=== PATIENT | female | born 1960 | race African-American/Black ===

== ENCOUNTER 2017-07-19 08:29 | Inpatient (IN) | payer OTHER ==
[2017-07-19 08:38] VITALS: BMI 27.1
--- NOTE | 2017-07-19 12:44 | HP ---
CIWA Score - CIWA Score Nausea/Vomitin Muscle Tremors: 3 Anxiety: 3 Agitation: 3 Paroxysmal Sweats: 1-Minimal Palms Moist Orientation: 0-Oriented Tacttile Disturbances: 2-Mild Itch/Numbness/Burn Auditory Disturbances: 2-Mild Harshness/Frighten Visual Disturbances: 1-Very Mild Sensitivity Headache: 2-Mild CIWA-Ar Total Score: 20 Admission ROS BHS - HPI Chief Complaint: i need help to stop drinking alcohol and marijuana Allergies/Adverse Reactions: Allergies Allergy/AdvReac Type Severity Reaction Status Date / Time No Known Allergies Allergy Verified 07/19/17 10:32 History of Present Illness: this 57 years old female with alcohol and marijuana dependence,seeking detox, withdrawal symptom,last detox [facility] 10 years ago sle since 2004 nicotine dependence longest period of sobriety 5 years Exam Limitations: No Limitations - Ebola screening Have you traveled outside of the country in the last 21 days: No (N) Have you had contact with anyone from an Ebola affected area: No Have you been sick,other than usual withdrawal symptoms: No Do you have a fever: No - Review of Systems Constitutional: Loss of Appetite, Night Sweats, Changes in sleep, Weakness EENT: reports: Tearing, Nose Congestion, Other (sle with rash facial area sensitive to light wearing sunglass) Respiratory: reports: No Symptoms reported Cardiac: reports: No Symptoms Reported GI: reports: Poor Appetite, Vomiting, Abdominal cramping : reports: No Symptoms Reported Musculoskeletal: reports: Back Pain, Muscle Pain Integumentary: reports: Dryness Neuro: reports: Headache, Tremors Endocrine: reports: No Symptoms Reported Hematology: reports: No Symptoms Reported Psychiatric: reports: No Sypmtoms Reported, Judgement Intact, Mood/Affect Appropiate, Orientated x3, Depressed Patient History - Patient Medical History Hx Anemia: No Hx Asthma: No Hx Chronic Obstructive Pulmonary Disease (COPD): No Hx Cancer: No Hx Cardiac Disorders: No Hx Congestive Heart Failure: No Hx Hypertension: No Hx Hypercholesterolemia: No Hx Pacemaker: No HX Cerebrovascular Accident: No Hx Seizures: No Hx Dementia: No Hx Diabetes: No Hx Gastrointestinal Disorders: No Hx Liver Disease: No Hx Genitourinary Disorders: No Hx Sexually Transmitted Disorders: No Hx Renal Disease (ESRD): No Hx Thyroid Disease: No Hx Human Immunodeficiency Virus (HIV): No (last 2016 negative) Hx Hepatitis C: No Hx Depression: Yes Hx Suicide Attempt: Yes (pill overdose at age 28) Hx Schizophrenia: No Other Medical History: no suicidal,no homicidal,sle on med - Patient Surgical History Past Surgical History: Yes Hx Neurologic Surgery: No Hx Cataract Extraction: No Hx Cardiac Surgery: No Hx Lung Surgery: No Hx Breast Surgery: Yes (bilateral reduction at age 28) Hx Breast Biopsy: No Hx Abdominal Surgery: No Hx Appendectomy: No Hx Cholecystectomy: No Hx Genitourinary Surgery: No Hx Section: No Hx Orthopedic Surgery: No Other Surgical History: tosillectomy at age 15 Anesthesia Reaction: No - PPD History Previous Implant?: Yes Documented Results: Negative w/o proof Implanted On Prior R Admission?: No PPD to be Administered?: No - Reproductive History Patient is a Female of Child Bearing Age (11 -55 yrs old): No Patient : No - Smoking Cessation Smoking history: Current every day smoker Have you smoked in the past 12 months: Yes Aproximately how many cigarettes per day: 3 Hx Chewing Tobacco Use: No Initiated information on smoking cessation: Yes 'Breaking Loose' booklet given: 07/19/17 - Substance & Tx. History Hx Alcohol Use: Yes Hx Substance Use: Yes Substance Use Type: Alcohol, Marijuana Hx Substance Use Treatment: Yes (2007) - Substances Abused Alcohol-beer/vodka Route: Oral Frequency: Daily Amount used: 4 (16 oz.)/1/2 pt. Age of first use: 20 Date of Last Use: 07/18/17 Marijuana Route: Smoking Frequency: 3-6 times per week Amount used: 1 joint Age of first use: 17 Date of Last Use: 07/17/17 Family Disease History - Family Disease History Family Disease History: Diabetes: Mother (dsa,), Heart Disease: Mother, Other: Father (alcohol), Mother Admission Physical Exam BHS - Vital Signs Vital Signs: Vital Signs - 24 hr 07/19/17 08:36 Temperature 97.1 F L Pulse Rate 67 Respiratory 18 Rate Blood Pressure 141/77 - Physical General Appearance: Yes: Moderate Distress, Tremorous, Irritable, Sweating, Anxious HEENTM: Yes: Normocephalic, FRANCISCO J, Pharynx Normal, Other (rash of facial area) Respiratory: Yes: Lungs Clear, Normal Breath Sounds Neck: Yes: Within Normal Limits, Supple, Trachea in good position Breast: Yes: Breast Exam Deferred Cardiology: Yes: Within Normal Limits, Regular Rhythm, Regular Rate, S1, S2 Abdominal: Yes: Within Normal Limits, Normal Bowel Sounds, Soft Genitourinary: Yes: Within Normal Limits Back: Yes: Muscle Spasm Musculoskeletal: Yes: Back pain, Muscle Pain Extremities: Yes: Within Normal Limits, Normal Range of Motion, Tremors Neurological: Yes: 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, Fully Oriented, Alert, Motor Strength 5/5 Integumentary: Yes: Dry Lymphatic: Yes: Within Normal Limits - Diagnostic (1) Alcohol dependence with uncomplicated withdrawal Current Visit: Yes Status: Acute (2) SLE (systemic lupus erythematosus) Current Visit: Yes Status: Acute (3) Alopecia Current Visit: Yes Status: Acute (4) Nicotine dependence Current Visit: Yes Status: Acute (5) Insomnia secondary to depression with anxiety Current Visit: Yes Status: Acute Cleared for Admission [facility] - Detox or Rehab [facility] Level of Care: Medically Managed Detox Regimen/Protocol: Librium S Breath Alcohol Content Breath Alcohol Content: 0 Urine Pregancy Test - Result Urine Test Results: Negative- NO Line Present Urine Drug Screen - Results Drug Screen Negative: Yes
[2017-07-19] MEDS ORDERED: ACETAMINOPHEN 325 MG TABLET (FP) PO PRN (13:00)
[2017-07-19] MEDS ORDERED: chlordiazePOXIDE HCL 25 MG CAPSULE PO PRN (13:00)
[2017-07-19] MEDS ORDERED: MAG HYDROX/AL HYDROX/SIMETH 30 ML UNIT-DOSE CUP PO PRN (13:00)
[2017-07-19] MEDS ORDERED: guaiFENesin/D-METHORPHAN HB 10 ML UNIT-DOSE CUPS PO PRN (13:00)
[2017-07-19] MEDS ORDERED: IBUPROFEN 400 MG TABLET (FP) PO PRN (13:00)
[2017-07-19] MEDS ORDERED: MAGNESIUM HYDROX 2400MG/30ML ORAL SUSPENSION 30 ML CUP PO PRN (13:00)
[2017-07-19] MEDS ORDERED: P-EPHED 60MG/TRIPROLIDI 2.5MG TABLET PO PRN (13:00)
[2017-07-19] MEDS ORDERED: LOPERAMIDE HCL 2 MG CAPSULE PO PRN (13:00)
[2017-07-19] MEDS ORDERED: MAGNESIUM CITRATE 300 ML BOTTLE PO PRN (13:00)
[2017-07-19] MEDS ORDERED: MENTHOL/PHENOL 1 EACH UD MM PRN (13:00)
[2017-07-19] MEDS ORDERED: hydrOXYzine PAMOATE 50 MG CAPSULE (FP) PO PRN (13:04)
--- NOTE | 2017-07-19 16:21 | EKG ---
Test Reason : Blood Pressure : / mmHG Vent. Rate : 060 BPM Atrial Rate : 060 BPM P-R Int : 140 ms QRS Dur : 090 ms QT Int : 422 ms P-R-T Axes : 039 -01 031 degrees QTc Int : 422 ms NORMAL SINUS RHYTHM NORMAL ECG NO PREVIOUS ECGS AVAILABLE Confirmed by MD Christian, Talib ([id number]) on 07/19/2017 4:21:37 PM Referred By: Confirmed By:Talib Gonzales MD
[2017-07-19] MEDS: chlordiazePOXIDE HCL 25 MG CAPSULE PO SCH ×2 (18:02→22:19)
[2017-07-19 19:04] LABS: URINE APPEARANCE CLEAR; URINE BILIRUBIN NEGATIVE (<2.0 mg/dL); URINE COLOR LTYELLOW; URINE GLUCOSE (UA) NEGATIVE (NEGATIVE); URINE KETONE NEGATIVE (NEGATIVE); URINE LEUK ESTERASE NEGATIVE (NEGATIVE); URINE NITRITE NEGATIVE (NEGATIVE); URINE PROTEIN NEGATIVE (NEGATIVE); URINE UROBILINOGEN NEGATIVE mg/dL (0.2-1.0)
[2017-07-19] MEDS: FLUOCINONIDE 0.05% TOP OINT (15 GM TUBE) TP SCH (22:19)
[2017-07-19] MEDS: THIAMINE HCL 100 MG TABLET (FP) PO SCH (22:19)
[2017-07-19] MEDS: MELATONIN 5 MG TABLETS PO PRN (22:21)
[2017-07-20] MEDS: chlordiazePOXIDE HCL 25 MG CAPSULE PO SCH ×4 (06:14→22:15)
--- NOTE | 2017-07-20 09:50 | CONSULT ---
[facility] Psychiatric Consult - Data Date of interview: 07/20/17 Admission source: [facility] Identifying data: This is 57 years old female, single, mother og five, living alone, on SSI, with psychiatric hospitalization history, with alcohol and marijuana dependence,seeking detox,reports withdrawal symptoms. Substance Abuse History: - Smoking Cessation. Smoking history: Current every day smoker. Have you smoked in the past 12 months: Yes. Aproximately how many cigarettes per day: 3. Hx Chewing Tobacco Use: No. Initiated information on smoking cessation: Yes. 'Breaking Loose' booklet given: 07/19/17. - Substance & Tx. History. Hx Alcohol Use: Yes. Hx Substance Use: Yes. Substance Use Type : Alcohol, Marijuana. Hx Substance Use Treatment: Yes (2007). - Substances Abused. Alcohol-beer/vodka. Route: Oral. Frequency: Daily. Amount used: 4 (16 oz.)/1/2 pt. Age of first use: 20. Date of Last Use: . Marijuana. Route: Smoking. Frequency: 3-6 times per week. Amount used : 1 joint. Age of first use: 17. Date of Last Use: 07/17/17 Medical History: SLE, Alopecia, Psychiatric History: Patient reports history of depression, reports only psychiatric admission long time ago after suicidal attempt by OD, no suicidal history sinth then. Currently on Zoloft 100mg poqd Physical/Sexual Abuse/Trauma History: Denies Additional Comment: Zoloft 100mg poqd Mental Status Exam - Mental Status Exam Alert and Oriented to: Place, Person Cognitive Function: Fair Patient Appearance: Unkempt Mood: Sad Affect: Mood Congruent Patient Behavior: Cooperative Speech Pattern: Appropriate Voice Loudness: Mildly Soft/Quiet Thought Process: Goal Oriented Thought Disorder: Being Controlled Hallucinations: Denies Suicidal Ideation: Denies Homicidal Ideation: Denies Insight/Judgement: Fair Sleep: Difficulty falling asleep Appetite: Weight gain Muscle strength/Tone: Mild Hypotonicity Gait/Station: Shuffling Additional Comments: Zoloft 100mg poqd Psychiatric Findings - Problem List ([place] 1, 2,3) (1) Drug-induced mood disorder Current Visit: Yes Status: Acute (2) Alcohol dependence with uncomplicated withdrawal Current Visit: Yes Status: Acute (3) Cannabis dependence Current Visit: Yes Status: Acute (4) Nicotine dependence Current Visit: Yes Status: Acute - Initial Treatment Plan Initial Treatment Plan: Zoloft 100mg poqd
[2017-07-20] MEDS ORDERED: BACITRACIN 0.9 GM PACKET TP ONE (10:18)
[2017-07-20 10:26] LABS: HEMOGLOBIN 10.2 GM/dL (10.7-15.3); MCH 27.6 pg (25.7-33.7); MEAN CELL VOLUME 86.2 fl (80-96); PLATELET COUNT 340 K/MM3 (134-434); RBC 3.71 M/mm3 (3.60-5.2); RDW 14.8 % (11.6-15.6); WHITE BLOOD COUNT 6.4 K/mm3 (4.0-10.0)
--- NOTE | 2017-07-20 10:31 | PN ---
S CIWA - CIWA Score Nausea/Vomitin-Mild Nausea/No Vomiting Muscle Tremors: 4-Moderate,w/Arms Extend Anxiety: 4-Mod. Anxious/Guarded Agitation: 4-Moderately Restless Paroxysmal Sweats: 1-Minimal Palms Moist Orientation: 0-Oriented Tacttile Disturbances: 1-Very Mild Itch/Numbness Auditory Disturbances: 0-None Visual Disturbances: 0-None Headache: 0-None Present CIWA-Ar Total Score: 15 BHS Progress Note (SOAP) Subjective: sweat tremor anxiety restlessness trouble sleep at night Objective: 07/20/17 10:41 Vital Signs Temperature 97.9 F 07/20/17 09:19 Pulse Rate 68 07/20/17 09:19 Respiratory Rate 18 07/20/17 09:19 Blood Pressure 128/73 07/20/17 09:19 O2 Sat by Pulse Oximetry (%) Laboratory Last Values WBC 6.4 K/mm3 (4.0-10.0) 07/20/17 06:20 RBC 3.71 M/mm3 (3.60-5.2) 07/20/17 06:20 Hgb 10.2 GM/dL (10.7-15.3) L 07/20/17 06:20 Hct 32.0 % (32.4-45.2) L 07/20/17 06:20 MCV 86.2 fl (80-96) 07/20/17 06:20 MCH 27.6 pg (25.7-33.7) 07/20/17 06:20 MCHC 32.0 g/dl (32.0-36.0) 07/20/17 06:20 RDW 14.8 % (11.6-15.6) 07/20/17 06:20 Plt Count 340 K/MM3 (134-434) 07/20/17 06:20 MPV 11.0 fl (7.5-11.1) 07/20/17 06:20 Urine Color Ltyellow 07/19/17 14:00 Urine Appearance Clear 07/19/17 14:00 Urine pH 7.0 (5.0-8.0) 07/19/17 14:00 Ur Specific [place] 1.013 (1.001-1.035) 07/19/17 14:00 Urine Protein Negative (NEGATIVE) 07/19/17 14:00 Urine Glucose (UA) Negative (NEGATIVE) 07/19/17 14:00 Urine Ketones Negative (NEGATIVE) 07/19/17 14:00 Urine Blood Negative (NEGATIVE) 07/19/17 14:00 Urine Nitrite Negative (NEGATIVE) 07/19/17 14:00 Urine Bilirubin Negative (<2.0 mg/dL) 07/19/17 14:00 Urine Urobilinogen Negative mg/dL (0.2-1.0) 07/19/17 14:00 Ur Leukocyte Esterase Negative (NEGATIVE) 07/19/17 14:00 lab noted Assessment: 07/20/17 10:42 withdrawal sx Plan: continue detox
[2017-07-20] MEDS: SERTRALINE HCL 50 MG TABLET (FP) PO SCH (10:40)
[2017-07-20] MEDS: PRENATAL VITAMINS W/ FOLIC ACID TABLET (FP) PO SCH (10:40)
[2017-07-20] MEDS: HYDROXYCHLOROQUINE SO4 200 MG TABLET (FP) PO SCH (10:40)
[2017-07-20] MEDS: FLUOCINONIDE 0.05% TOP OINT (15 GM TUBE) TP SCH ×2 (10:41→22:15)
[2017-07-20 11:30] LABS: CHLORIDE 107 mmol/L (98-107); POTASSIUM 3.8 mmol/L (3.5-5.1); SODIUM 142 mmol/L (136-145)
[2017-07-20 11:36] LABS: ALBUMIN 3.9 g/dl (3.4-5.0); ALK PHOS 70 U/L (45-117); ANION GAP 7 (8-16); BILIRUBIN,TOTAL 0.6 mg/dL (0.2-1.0); BLOOD UREA NITROGEN 20 mg/dL (7-18); CALCIUM 9.1 mg/dL (8.5-10.1); CO2 28 mmol/L (21-32); CREATININE 0.9 mg/dL (0.55-1.02); GLUCOSE,RANDOM 94 mg/dL (74-106); SGOT/AST 22 U/L (15-37); SGPT/ALT 24 U/L (12-78); TOT PROT 8.1 g/dl (6.4-8.2)
[2017-07-20 13:28] LABS: RPR REACTIVE 1:2 (NONREACTIVE)
--- NOTE | 2017-07-20 15:02 | PN ---
BHS Progress Note Note: rpr 1;2 MHA pending
[2017-07-20 16:13] LABS: TREPONEMA ANTIBODY REACTIVE (NONREACTIVE)
[2017-07-20] MEDS: THIAMINE HCL 100 MG TABLET (FP) PO SCH (22:15)
[2017-07-20] MEDS: MELATONIN 5 MG TABLETS PO PRN (22:16)
[2017-07-21] MEDS: chlordiazePOXIDE HCL 25 MG CAPSULE PO SCH ×2 (05:40→10:07)
[2017-07-21] MEDS: SERTRALINE HCL 50 MG TABLET (FP) PO SCH (10:07)
[2017-07-21] MEDS: FLUOCINONIDE 0.05% TOP OINT (15 GM TUBE) TP SCH ×2 (10:07→22:11)
[2017-07-21] MEDS: HYDROXYCHLOROQUINE SO4 200 MG TABLET (FP) PO SCH (10:07)
[2017-07-21] MEDS: PRENATAL VITAMINS W/ FOLIC ACID TABLET (FP) PO SCH (10:07)
--- NOTE | 2017-07-21 10:30 | PN ---
S CIWA - CIWA Score Nausea/Vomitin-Mild Nausea/No Vomiting Muscle Tremors: 4-Moderate,w/Arms Extend Anxiety: 3 Agitation: 2 Paroxysmal Sweats: 1-Minimal Palms Moist Orientation: 0-Oriented Tacttile Disturbances: 1-Very Mild Itch/Numbness Auditory Disturbances: 0-None Visual Disturbances: 0-None Headache: 0-None Present CIWA-Ar Total Score: 12 BHS Progress Note (SOAP) Subjective: sweat tremor anxiety restlessness Objective: 07/21/17 10:24 Vital Signs Temperature 97.2 F L 07/21/17 09:23 Pulse Rate 57 L 07/21/17 09:23 Respiratory Rate 18 07/21/17 09:23 Blood Pressure 122/69 07/21/17 09:23 O2 Sat by Pulse Oximetry (%) Laboratory Last Values WBC 6.4 K/mm3 (4.0-10.0) 07/20/17 06:20 RBC 3.71 M/mm3 (3.60-5.2) 07/20/17 06:20 Hgb 10.2 GM/dL (10.7-15.3) L 07/20/17 06:20 Hct 32.0 % (32.4-45.2) L 07/20/17 06:20 MCV 86.2 fl (80-96) 07/20/17 06:20 MCH 27.6 pg (25.7-33.7) 07/20/17 06:20 MCHC 32.0 g/dl (32.0-36.0) 07/20/17 06:20 RDW 14.8 % (11.6-15.6) 07/20/17 06:20 Plt Count 340 K/MM3 (134-434) 07/20/17 06:20 MPV 11.0 fl (7.5-11.1) 07/20/17 06:20 Hypersegmented Neuts Cancelled 07/20/17 06:20 Hypochromia Cancelled 07/20/17 06:20 Toxic Granulation Cancelled 07/20/17 06:20 Dohle Bodies Cancelled 07/20/17 06:20 Polychromasia Cancelled 07/20/17 06:20 Poikilocytosis Cancelled 07/20/17 06:20 Basophilic Stippling Cancelled 07/20/17 06:20 Anisocytosis Cancelled 07/20/17 06:20 Microcytosis Cancelled 07/20/17 06:20 Macrocytosis Cancelled 07/20/17 06:20 Spherocytes Cancelled 07/20/17 06:20 Siderocytes Cancelled 07/20/17 06:20 Sickle Cells Cancelled 07/20/17 06:20 Target Cells Cancelled 07/20/17 06:20 Tear Drop Cells Cancelled 07/20/17 06:20 Ovalocytes Cancelled 07/20/17 06:20 Stomatocytes Cancelled 07/20/17 06:20 Helmet Cells Cancelled 07/20/17 06:20 [place] Bodies Cancelled 07/20/17 06:20 [place] Rings Cancelled 07/20/17 06:20 Shayna Cells Cancelled 07/20/17 06:20 Acanthocytes (Spur) Cancelled 07/20/17 06:20 Rouleaux Cancelled 07/20/17 06:20 Fragmented RBCs Cancelled 07/20/17 06:20 Schistocytes Cancelled 07/20/17 06:20 Morphology Comment Cancelled 07/20/17 06:20 Sodium 142 mmol/L (136-145) 07/20/17 06:20 Potassium 3.8 mmol/L (3.5-5.1) 07/20/17 06:20 Chloride 107 mmol/L (98-107) 07/20/17 06:20 Carbon Dioxide 28 mmol/L (21-32) 07/20/17 06:20 Anion Gap 7 (8-16) L 07/20/17 06:20 BUN 20 mg/dL (7-18) H 07/20/17 06:20 Creatinine 0.9 mg/dL (0.55-1.02) 07/20/17 06:20 Creat Clearance w eGFR > 60 (>60) 07/20/17 06:20 Random Glucose 94 mg/dL (74-106) 07/20/17 06:20 Calcium 9.1 mg/dL (8.5-10.1) 07/20/17 06:20 Total Bilirubin 0.6 mg/dL (0.2-1.0) 07/20/17 06:20 AST 22 U/L (15-37) 07/20/17 06:20 ALT 24 U/L (12-78) 07/20/17 06:20 Alkaline Phosphatase 70 U/L (45-117) 07/20/17 06:20 Total Protein 8.1 g/dl (6.4-8.2) 07/20/17 06:20 Albumin 3.9 g/dl (3.4-5.0) 07/20/17 06:20 Urine Color Ltyellow 07/19/17 14:00 Urine Appearance Clear 07/19/17 14:00 Urine pH 7.0 (5.0-8.0) 07/19/17 14:00 Ur Specific [place] 1.013 (1.001-1.035) 07/19/17 14:00 Urine Protein Negative (NEGATIVE) 07/19/17 14:00 Urine Glucose (UA) Negative (NEGATIVE) 07/19/17 14:00 Urine Ketones Negative (NEGATIVE) 07/19/17 14:00 Urine Blood Negative (NEGATIVE) 07/19/17 14:00 Urine Nitrite Negative (NEGATIVE) 07/19/17 14:00 Urine Bilirubin Negative (<2.0 mg/dL) 07/19/17 14:00 Urine Urobilinogen Negative mg/dL (0.2-1.0) 07/19/17 14:00 Ur Leukocyte Esterase Negative (NEGATIVE) 07/19/17 14:00 RPR Titer Reactive 1:2 (NONREACTIVE) H 07/20/17 06:20 T.pallidum Ab (MHA) Reactive (NONREACTIVE) 07/20/17 06:20 lab noted rpr 1:2 treated siphilis by history Assessment: 07/21/17 10:30 withdrawal sx syphilis 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
[2017-07-21] MEDS: NICOTINE 14 MG/24 HOURS TOPICAL PATCH TD SCH (12:53)
[2017-07-21] MEDS: chlordiazePOXIDE 5 MG CAPSULE PO SCH ×2 (17:31→22:09)
[2017-07-21] MEDS: THIAMINE HCL 100 MG TABLET (FP) PO SCH (22:09)
[2017-07-21] MEDS: MELATONIN 5 MG TABLETS PO PRN (22:09)
[2017-07-22] MEDS: chlordiazePOXIDE 5 MG CAPSULE PO SCH ×2 (06:06→11:11)
[2017-07-22] MEDS: SERTRALINE HCL 50 MG TABLET (FP) PO SCH (10:46)
[2017-07-22] MEDS: PRENATAL VITAMINS W/ FOLIC ACID TABLET (FP) PO SCH (10:46)
[2017-07-22] MEDS: HYDROXYCHLOROQUINE SO4 200 MG TABLET (FP) PO SCH (10:47)
[2017-07-22] MEDS: FLUOCINONIDE 0.05% TOP OINT (15 GM TUBE) TP SCH ×2 (10:47→22:11)
[2017-07-22] MEDS: NICOTINE 14 MG/24 HOURS TOPICAL PATCH TD SCH (10:47)
--- NOTE | 2017-07-22 13:34 | PN ---
S Progress Note (SOAP) Subjective: feeling better no sweat no tremor slept through the night social with peers in day room Objective: 07/22/17 13:33 Vital Signs Temperature 95.5 F L 07/22/17 09:45 Pulse Rate 103 H 07/22/17 09:45 Respiratory Rate 20 07/22/17 09:45 Blood Pressure 136/79 07/22/17 09:45 O2 Sat by Pulse Oximetry (%) Laboratory Last Values WBC 6.4 K/mm3 (4.0-10.0) 07/20/17 06:20 RBC 3.71 M/mm3 (3.60-5.2) 07/20/17 06:20 Hgb 10.2 GM/dL (10.7-15.3) L 07/20/17 06:20 Hct 32.0 % (32.4-45.2) L 07/20/17 06:20 MCV 86.2 fl (80-96) 07/20/17 06:20 MCH 27.6 pg (25.7-33.7) 07/20/17 06:20 MCHC 32.0 g/dl (32.0-36.0) 07/20/17 06:20 RDW 14.8 % (11.6-15.6) 07/20/17 06:20 Plt Count 340 K/MM3 (134-434) 07/20/17 06:20 MPV 11.0 fl (7.5-11.1) 07/20/17 06:20 Hypersegmented Neuts Cancelled 07/20/17 06:20 Hypochromia Cancelled 07/20/17 06:20 Toxic Granulation Cancelled 07/20/17 06:20 Dohle Bodies Cancelled 07/20/17 06:20 Polychromasia Cancelled 07/20/17 06:20 Poikilocytosis Cancelled 07/20/17 06:20 Basophilic Stippling Cancelled 07/20/17 06:20 Anisocytosis Cancelled 07/20/17 06:20 Microcytosis Cancelled 07/20/17 06:20 Macrocytosis Cancelled 07/20/17 06:20 Spherocytes Cancelled 07/20/17 06:20 Siderocytes Cancelled 07/20/17 06:20 Sickle Cells Cancelled 07/20/17 06:20 Target Cells Cancelled 07/20/17 06:20 Tear Drop Cells Cancelled 07/20/17 06:20 Ovalocytes Cancelled 07/20/17 06:20 Stomatocytes Cancelled 07/20/17 06:20 Helmet Cells Cancelled 07/20/17 06:20 [place] Bodies Cancelled 07/20/17 06:20 [place] Rings Cancelled 07/20/17 06:20 Shayna Cells Cancelled 07/20/17 06:20 Acanthocytes (Spur) Cancelled 07/20/17 06:20 Rouleaux Cancelled 07/20/17 06:20 Fragmented RBCs Cancelled 07/20/17 06:20 Schistocytes Cancelled 07/20/17 06:20 Morphology Comment Cancelled 07/20/17 06:20 Sodium 142 mmol/L (136-145) 07/20/17 06:20 Potassium 3.8 mmol/L (3.5-5.1) 07/20/17 06:20 Chloride 107 mmol/L (98-107) 07/20/17 06:20 Carbon Dioxide 28 mmol/L (21-32) 07/20/17 06:20 Anion Gap 7 (8-16) L 07/20/17 06:20 BUN 20 mg/dL (7-18) H 07/20/17 06:20 Creatinine 0.9 mg/dL (0.55-1.02) 07/20/17 06:20 Creat Clearance w eGFR > 60 (>60) 07/20/17 06:20 Random Glucose 94 mg/dL (74-106) 07/20/17 06:20 Calcium 9.1 mg/dL (8.5-10.1) 07/20/17 06:20 Total Bilirubin 0.6 mg/dL (0.2-1.0) 07/20/17 06:20 AST 22 U/L (15-37) 07/20/17 06:20 ALT 24 U/L (12-78) 07/20/17 06:20 Alkaline Phosphatase 70 U/L (45-117) 07/20/17 06:20 Total Protein 8.1 g/dl (6.4-8.2) 07/20/17 06:20 Albumin 3.9 g/dl (3.4-5.0) 07/20/17 06:20 Urine Color Ltyellow 07/19/17 14:00 Urine Appearance Clear 07/19/17 14:00 Urine pH 7.0 (5.0-8.0) 07/19/17 14:00 Ur Specific [place] 1.013 (1.001-1.035) 07/19/17 14:00 Urine Protein Negative (NEGATIVE) 07/19/17 14:00 Urine Glucose (UA) Negative (NEGATIVE) 07/19/17 14:00 Urine Ketones Negative (NEGATIVE) 07/19/17 14:00 Urine Blood Negative (NEGATIVE) 07/19/17 14:00 Urine Nitrite Negative (NEGATIVE) 07/19/17 14:00 Urine Bilirubin Negative (<2.0 mg/dL) 07/19/17 14:00 Urine Urobilinogen Negative mg/dL (0.2-1.0) 07/19/17 14:00 Ur Leukocyte Esterase Negative (NEGATIVE) 07/19/17 14:00 RPR Titer Reactive 1:2 (NONREACTIVE) H 07/20/17 06:20 T.pallidum Ab (MHA) Reactive (NONREACTIVE) 07/20/17 06:20 lab noted Assessment: 07/22/17 13:34 mild with drawal sx Plan: medically supervised detox
[2017-07-22] MEDS: ARTIFICIAL TEARS (POLYVINYL ALCOHOL 1.4%) OPTH DROPS OU SCH ×2 (14:29→22:11)
[2017-07-22] MEDS: chlordiazePOXIDE HCL 10 MG CAPSULE PO SCH ×2 (17:20→22:11)
[2017-07-22] MEDS: THIAMINE HCL 100 MG TABLET (FP) PO SCH (22:11)
[2017-07-23] MEDS: chlordiazePOXIDE HCL 10 MG CAPSULE PO SCH ×2 (06:05→10:09)
[2017-07-23] MEDS: ARTIFICIAL TEARS (POLYVINYL ALCOHOL 1.4%) OPTH DROPS OU SCH (06:06)
--- NOTE | 2017-07-23 09:19 | PN ---
S Progress Note (SOAP) Subjective: ALERT,NO COMPLAINT Objective: 07/23/17 09:19 Vital Signs Temperature 97.7 F 07/23/17 07:23 Pulse Rate 74 07/23/17 07:23 Respiratory Rate 18 07/23/17 07:23 Blood Pressure 140/69 07/23/17 07:23 O2 Sat by Pulse Oximetry (%) Assessment: 07/23/17 09:19 DETOX COMPLETED,NO WITHDRAWAL SYMPTOM Plan: DISCHARGE TODAY,FOLLOW UP WITH AFTER CARE PROGRAM ARRANGEMENT
--- NOTE | 2017-07-23 09:26 | DS ---
[facility] Detox Discharge Summary Admission Date: 07/19/17 Discharge Date: 07/23/17 - History Present History: Alcohol Dependence Additional Comments: FOLLOW UP WITH AFTER CARE PROGRAM ARRANGEMENT Pertinent Past History: SLE NICOTINE DEPENDENCE ALOPECIA INSOMNIA ANXIETY AND DEPRESSION - Physical Exam Results Vital Signs: Vital Signs Temperature 97.7 F 07/23/17 07:23 Pulse Rate 74 07/23/17 07:23 Respiratory Rate 18 07/23/17 07:23 Blood Pressure 140/69 07/23/17 07:23 O2 Sat by Pulse Oximetry (%) Pertinent Admission Physical Exam Findings: WITHDRAWAL SIGNS AND SYMPTOM - Treatment Hospital Course: Detox Protocol Followed, Detoxed Safely, Responded well, Discharged Condition Good, Rehab Referral Accepted Patient has Accepted a Rehab Referral to: [facility] - Medication Discharge Medications: Ambulatory Orders Fluocinonide 0.05% Oin [Lidex 0.05% Ointment -] 1 applic TP BID 07/19/17 Sertraline HCl [Zoloft] 100 mg PO DAILY #30 tablet 07/20/17 Hydroxychloroquine Sulfate [Plaquenil] 200 mg PO DAILY #7 tablet 07/22/17 - Diagnosis (1) Alcohol dependence with uncomplicated withdrawal Current Visit: Yes Status: Acute (2) SLE (systemic lupus erythematosus) Current Visit: Yes Status: Acute (3) Alopecia Current Visit: Yes Status: Acute (4) Nicotine dependence Current Visit: Yes Status: Acute (5) Insomnia secondary to depression with anxiety Current Visit: Yes Status: Acute (6) History of syphilis Current Visit: Yes Status: Acute - AMA Did Patient Leave Against Medical Advice: No
[2017-07-23 09:30] VITALS: BP 126/72; PULSE 79; TEMP 97.5
[2017-07-23] MEDS: HYDROXYCHLOROQUINE SO4 200 MG TABLET (FP) PO SCH (10:08)
[2017-07-23] MEDS: SERTRALINE HCL 50 MG TABLET (FP) PO SCH (10:08)
[2017-07-23] MEDS: PRENATAL VITAMINS W/ FOLIC ACID TABLET (FP) PO SCH (10:08)
[2017-07-23] MEDS: FLUOCINONIDE 0.05% TOP OINT (15 GM TUBE) TP SCH (10:10)
== END 2017-07-23 10:45 | disposition home or self-care (01) | DRG 897 ==
LOC: YASAS 08:29 → Y6N 12:49
PROVIDERS: ADMIT Surgery; ATTEND Surgery
PROC: HZ2ZZZZ Detoxification Services for Substance Abuse Treatment (ICD-10-PCS; principal; 2017-07-19)
DX: F10.230 Alcohol dependence with withdrawal, uncomplicated (principal); F17.213 Nicotine dependence, cigarettes, with withdrawal; F41.8 Other specified anxiety disorders; F19.24 Other psychoactive substance dependence with psychoactive substance-induced mood disorder; M32.9 Systemic lupus erythematosus, unspecified; L65.9 Nonscarring hair loss, unspecified; F51.05 Insomnia due to other mental disorder; Z86.19 Personal history of other infectious and parasitic diseases; Z91.5 Personal history of self-harm
CPT/HCPCS: 36415; 80053; 81003; 85027; 86593; 86780; 93005; 93010